=== PATIENT | male | born 1970 | race American Indian/Alaskan Native ===

== ENCOUNTER 2021-04-14 17:39 | Emergency (ER) | payer SELFPAY ==
--- NOTE | 2021-04-14 20:52 | Emergency Department Report ---
ED General Adult HPI - General Chief complaint: Medical Clearance Stated complaint: RX REFILL Source: patient Mode of arrival: Ambulatory Limitations: No Limitations - History of Present Illness Initial comments: Patient is a 50-year-old -[place] male with a history of hypertension and asthma who presents to the ED requesting for medication refill of his blood pressure medications and albuterol inhaler after he ran out of his medications 12 hours ago. Patient states that he takes amlodipine 5 mg daily and enalapril- HCTZ 10 mg - 25 mg daily for his hypertension. Patient denies dizziness, syncope, chest pain, shortness of breath, abdominal pain, headache, nausea and vomiting. MD Complaint: Medication refill -: Sudden, days(s) (2) Radiation: non-radiation Severity scale (0 -10): 0 Quality: dull Consistency: constant Improves with: none Worsens with: none Associated Symptoms: denies other symptoms. denies: confusion, chest pain, cough, diaphoresis, fever/chills, headaches, loss of appetite, malaise, nausea/vomiting, rash, seizure, shortness of breath, syncope, weakness Treatments Prior to Arrival: none - Related Data Previous Rx's Medication Instructions Recorded Last Taken Type Albuterol Sulfate [Proventil Hfa] 1 - 2 puff IH Q6H PRN #1 hfa.aer.ad 04/14/21 Unknown Rx Enalapril/Hydrochlorothiazide 1 each PO DAILY #30 tablet 04/14/21 Unknown Rx [Enalapril-Hctz 10-25 mg Tablet] amLODIPine 5 mg PO DAILY #30 tab 04/14/21 Unknown Rx Allergies Allergy/AdvReac Type Severity Reaction Status Date / Time No Known Allergies Allergy Unverified 04/14/21 20:42 ED Review of Systems ROS: Stated complaint: RX REFILL Other details as noted in HPI Constitutional: denies: chills, fever Eyes: denies: eye pain, eye discharge, vision change ENT: denies: ear pain, throat pain Respiratory: denies: cough, shortness of breath, wheezing Cardiovascular: denies: chest pain, palpitations Endocrine: no symptoms reported Gastrointestinal: denies: abdominal pain, nausea, vomiting, diarrhea Genitourinary: denies: urgency, dysuria Musculoskeletal: denies: back pain, joint swelling, arthralgia Skin: denies: rash, lesions Neurological: denies: headache, weakness, paresthesias Psychiatric: denies: anxiety, depression Hematological/Lymphatic: denies: easy bleeding, easy bruising ED Past Medical Hx - Past Medical History Previous Medical History?: Yes Hx Hypertension: Yes Hx Asthma: Yes - Surgical History Past Surgical History?: No - Social History Smoking Status: Never Smoker Substance Use Type: None - Medications Home Medications: Home Medications Medication Instructions Recorded Confirmed Last Taken Type Albuterol Sulfate [Proventil Hfa] 1 - 2 puff IH Q6H PRN #1 hfa.aer.ad 04/14/21 Unknown Rx Enalapril/Hydrochlorothiazide 1 each PO DAILY #30 tablet 04/14/21 Unknown Rx [Enalapril-Hctz 10-25 mg Tablet] amLODIPine 5 mg PO DAILY #30 tab 04/14/21 Unknown Rx ED Physical Exam - General Limitations: No Limitations General appearance: alert, in no apparent distress - Head Head exam: Present: atraumatic, normocephalic, normal inspection - Eye Eye exam: Present: normal appearance, PERRL, EOMI Pupils: Present: normal accommodation - ENT ENT exam: Present: normal exam, normal orophraynx, mucous membranes moist, TM's normal bilaterally, normal external ear exam - Neck Neck exam: Present: normal inspection, full ROM - Respiratory Respiratory exam: Present: normal lung sounds bilaterally. Absent: respiratory distress, wheezes, rales, rhonchi, chest wall tenderness, accessory muscle use, decreased breath sounds, prolonged expiratory - Cardiovascular Cardiovascular Exam: Present: regular rate, normal rhythm, normal heart sounds. Absent: systolic murmur, diastolic murmur, rubs, gallop - GI/Abdominal GI/Abdominal exam: Present: soft, normal bowel sounds. Absent: distended, tenderness, guarding, rebound, hyperactive bowel sounds, hypoactive bowel sounds, organomegaly - Extremities Exam Extremities exam: Present: normal inspection, full ROM, normal capillary refill - Back Exam Back exam: Present: normal inspection, full ROM. Absent: tenderness, CVA tenderness (R), CVA tenderness (L), muscle spasm, paraspinal tenderness, vertebral tenderness - Neurological Exam Neurological exam: Present: alert, oriented X3, CN II-XII intact, normal gait, reflexes normal - Psychiatric Psychiatric exam: Present: normal affect, normal mood - Skin Skin exam: Present: warm, dry, intact, normal color. Absent: rash ED Course Vital Signs 04/14/21 20:35 Temperature 98.6 F Pulse Rate 80 Respiratory 16 Rate Blood Pressure 127/86 O2 Sat by Pulse 99 Oximetry ED Medical Decision Making - Medical Decision Making This is a 50-year-old -[place] male with a history of hypertension and asthma who presents to the ED requesting for medication refill of his blood pressure medications and albuterol inhaler after he ran out of his medications 12 hours ago. Patient states that he takes amlodipine 5 mg daily and enalapril- HCTZ 10 mg - 25 mg daily for his hypertension. In the ED, patient is alert and oriented x3 and is not in distress with normal vital signs. Patient was discharged home with the new prescriptions as requested. Patient was advised to follow-up with his primary care physician in 5 to 7 days for reevaluation. Patient was advised to return to the ED immediately if symptoms get worse. - Differential Diagnosis medication refil; chronic hypertension Critical care attestation.: If time is entered above; I have spent that time in minutes in the direct care of this critically ill patient, excluding procedure time. ED Disposition Clinical Impression: Encounter for medication refill Hypertension Qualifiers: Hypertension type: essential hypertension Qualified Code(s): I10 - Essential (primary) hypertension Disposition: DC-01 TO HOME OR SELFCARE Is pt being admited?: No Does the pt Need Aspirin: No Condition: Stable Instructions: Hypertension, Adult, [id number], Hypertension (ED) Additional Instructions: Take your regular medications as advised, plenty of fluids and follow-up with your primary care physician in 7 to 10 days for reevaluation. Return to the ED immediately if symptoms get worse. Prescriptions: amLODIPine 5 mg PO DAILY #30 tab Enalapril/Hydrochlorothiazide [Enalapril-Hctz 10-25 mg Tablet] 1 each PO DAILY #30 tablet Albuterol Sulfate [Proventil Hfa] 1 - 2 puff IH Q6H PRN #1 hfa.aer.ad PRN Reason: Shortness Of Breath Referrals: [facility] [Provider Group] - 3-5 Days Time of Disposition: 20:51 Print Language: DIVEHI
== END 2021-04-14 21:04 | disposition home or self-care (01) ==
LOC: ED 17:39
CPT/HCPCS: 99282